=== PATIENT | male | born 1950 | race Caucasian/White ===

== ENCOUNTER 2016-10-03 11:37 | Day surgery (SDC) | payer OTHER ==
[~2016-10-03] VITALS: Ht 185.4 cm; Wt 86.2 kg
[~2016-10-03 11:37] MED LIST: ALPR.25 PO; ASPI81TA45 PO; DIGO0.25 PO; DOCU1CAP39 PO; LACT20SO4 PO; LANS30 PO; LEVO50TA4 PO; METO25 PO; PACE200T4 PO; PRAV10 PO; RIFA550 PO; THIA100T PO; TRAM50TA PO
[2016-10-03] MEDS ORDERED: NS 1000P @30 MLS/HR (KVO) IV SCH (12:30)
[2016-10-03 12:39] VITALS: BP 157/88; PULSE 84; RESP 17; TEMP 98.2; O2SAT 99
[2016-10-03 12:49] LABS: BASOPHIL # 0.1 TH/MM3 (0-0.2); BASOPHIL % 1.2 % (0.0-2.0); EOSINOPHIL # 0.2 TH/MM3 (0-0.4); EOSINOPHIL % 4.2 % (0.0-4.0); HEMATOCRIT 41.8 % (39.0-51.0); HEMO FLAGS DIFF FINAL; LYMPH % 26.2 % (9.0-44.0); LYMPHOCYTE # 1.5 TH/MM3 (1.0-4.8); MEAN CELL VOLUME 99.6 FL (80.0-100.0); MEAN CORPUSCULAR HEMOGLOBIN 34.4 PG (27.0-34.0); MEAN CORPUSCULAR HGB CONC 34.6 % (32.0-36.0); MONO % 14.2 % (0.0-8.0); NEUT % 54.2 % (16.0-70.0); PLATELET COUNT 149 TH/MM3 (150-450); RED CELL DISTRIBUTION WIDTH 13.4 % (11.6-17.2); WHITE BLOOD COUNT 5.5 TH/MM3 (4.0-11.0)
[2016-10-03 12:51] LABS: APTT (PATIENT) 30.7 SEC (24.3-30.1); INTERNATIONAL NORMALIZED RATIO 1.1 RATIO; PROTHROMBIN TIME - PATIENT 11.9 SEC (9.8-11.6)
[2016-10-03] MEDS ORDERED: ENAL1SOL2 PO (12:54)
[2016-10-03] MEDS ORDERED: VITA100036 PO (12:54)
[2016-10-03] MEDS ORDERED: METO50TA PO (12:54)
[2016-10-03] MEDS ORDERED: ATOR10TA15 PO (12:54)
[2016-10-03] MEDS ORDERED: ALPR0.25 PO (12:54)
[2016-10-03] MEDS ORDERED: VITATAB11 PO (12:54)
[2016-10-03] MEDS ORDERED: CLON0.1T PO (12:54)
[2016-10-03] MEDS ORDERED: FURO40TA PO (12:54)
[2016-10-03] MEDS ORDERED: LANS30CA PO (12:54)
[2016-10-03] MEDS ORDERED: FISH500C PO (12:54)
[2016-10-03] MEDS ORDERED: ASPI1TAB69 PO (12:54)
[2016-10-03] MEDS ORDERED: POTA10CA PO (12:54)
[2016-10-03] MEDS ORDERED: MULT1CHW70 PO (12:54)
[2016-10-03] MEDS ORDERED: LEVO50TA4 PO (12:54)
[2016-10-03 12:59] LABS: POTASSIUM 3.7 MEQ/L (3.5-5.1)
[2016-10-03] MEDS ORDERED: MIDAZOLAM HCL 2 MG/2 ML VIAL ONE (13:29)
[2016-10-03] MEDS ORDERED: HEPARIN-NS/PF INJ 500 ML ONE (13:29)
[2016-10-03] MEDS ORDERED: SODIUM CHLOR 0.9% 250 ML INJ 250 ML IV PRN (14:15)
[2016-10-03] MEDS ORDERED: ONDANSETRON HCL 4 MG/2 ML VIAL IV PRN (14:15)
[2016-10-03] MEDS ORDERED: ATROPINE SULFATE 1 MG/ML VIAL IVP PRN (14:15)
[2016-10-03] MEDS ORDERED: SODIUM CHLOR 0.9% 1000 ML INJ 1,000 ML IV ONE (15:00)
--- NOTE | 2016-10-03 17:02 | MA ---
cc: RAINE BOWDEN M.D. DATE: 10/03/2016 PROCEDURE Left heart catheterization, selective coronary angiography, left ventriculography. PROCEDURE NOTE The patient was brought to the cardiac catheterization laboratory in fasting state after having signed informed consent. The right groin was prepped and draped as per policy and anesthetized with 1% lidocaine. Arterial access was obtained via the right femoral artery and a 6-Croatian sheath placed. Coronary arteriography was performed using 6-Croatian Jabier left 4.0 and right progressive catheters. Left ventriculography was done using a standard 6-Croatian pigtail. The bypass grafts were engaged with the progressive right catheter. There were no apparent immediate complications. His arteriotomy site was closed with Vascade with the achievement of good hemostasis. HEMODYNAMIC RESULTS Left ventricle 133 with an end-diastolic pressure is 16. Aorta 129/55 with a mean 87. There was no significant transvalvular aortic gradient on pullback of the pigtail catheter. CORONARY ARTERIOGRAPHY The left main is moderately calcified. There is distal 80-85% stenosis. This lesion also involves the takeoff of the left circumflex. The left anterior descending is totally occluded at its origin. The left circumflex apart from the ostial lesion has diffuse disease in its proximal portion resulting in up to 40% stenosis. There is a tiny ramus intermedius which has severe ostial disease and severe mid disease. The right coronary artery has a long zone of total occlusion proximally. A few collaterals are seen on contrast injection of the vein graft to the obtuse marginal system going to the right coronary GRAFT ANGIOGRAPHY The vein graft to an obtuse marginal is widely patent. This graft reportedly had a sequential to another obtuse marginal, and the sequential portion is not seen. The left internal mammary artery to the LAD is widely patent. Scant collaterals are seen from the LAD to the right coronary. LEFT VENTRICULOGRAPHY Contrast injection of the left ventricle reveals global hypokinesis. Ejection fraction is approximately 35-40%. CONCLUSION 1. Severe three-vessel [place] coronary artery disease. 2. Patent left internal mammary artery to the LAD and patent vein graft to the obtuse marginal; a reported sequential portion of the graft to the obtuse marginal is not seen and presumed to be totally occluded. 3. Totally occluded unbypassed right coronary with few collaterals from the left coronary system. 4. Reduced left ventricular systolic function with ejection fraction roughly estimated at 35-40% due to global hypokinesis. MD BASIL Rutledge/manuela /2:12 PM /4:44 PM DIMA
--- NOTE | 2016-10-04 23:38 | EKG ---
Date Performed: 10/03/2016 Time Performed: 12:30:40 PTAGE: 66 years EKG: Sinus rhythm Left axis deviation IV conduction defect Anteroseptal ST elevation - possible early repolarization L ateral ST-T changes are nonspecific Abnormal ECG PREVIOUS TRACING : 07/15/2014 11.22 DOCTOR: Helen Means Interpretating Date/Time 10/04/2016 23:34:55
== END 2016-10-03 16:50 | disposition home or self-care (01) ==
LOC: HDOC 11:37 → HDIC 11:38 → HDOC 16:50
PROVIDERS: ATTEND Internal Medicine Cardiovascular Disease
DX: I25.10 Atherosclerotic heart disease of native coronary artery without angina pectoris (principal); I48.0 Paroxysmal atrial fibrillation; E78.5 Hyperlipidemia, unspecified; I42.9 Cardiomyopathy, unspecified; I50.9 Heart failure, unspecified; Z95.1 Presence of aortocoronary bypass graft
CPT/HCPCS: 80048; 85025; 85610; 85730; 93005; 93458; C1760; C1769; C1893; G0269; J1644; J2250; J3010

== ENCOUNTER 2017-11-24 07:30 | Day surgery (SDC) | payer OTHER ==
[~2017-11-24] VITALS: Ht 175.3 cm; Wt 95.5 kg
[~2017-11-24 07:30] MED LIST changes: -ALPR.25 PO; +ALPR0.25 PO; +ASPI1TAB69 PO; -ASPI81TA45 PO; +ATOR10TA15 PO; +CHOL10008 PO; +CLON0.1T PO; -DIGO0.25 PO; -DOCU1CAP39 PO; +ENAL1SOL2 PO; +FISH500C PO; +FURO40TA PO; -LACT20SO4 PO; -LANS30 PO; +LANS30CA PO; -METO25 PO; +METO50TA PO; +MULT1CHW70 PO; -PACE200T4 PO; +POTA10CA PO; -PRAV10 PO; -RIFA550 PO; -THIA100T PO; -TRAM50TA PO; +VITATAB11 PO
[2017-11-24] MEDS ORDERED: IOHEXOL 350 MG/ML 50 ML BTL (for Cath Lab) OTHER ONE (07:31)
[2017-11-24] MEDS ORDERED: NS 1000P @30 MLS/HR (KVO) IV SCH (08:00)
[2017-11-24 08:12] VITALS: BP 172/102; PULSE 83; RESP 18; TEMP 97.9; O2SAT 100
[2017-11-24] MEDS ORDERED: ECASA81 PO (08:22)
[2017-11-24] MEDS ORDERED: NAPR-855 PO (08:22)
[2017-11-24] MEDS ORDERED: MULTTAB67 PO (08:22)
[2017-11-24 08:35] LABS: AUTOMATED NEUTROPHIL # 2.5 TH/MM3 (1.8-7.7); BASOPHIL # 0.1 TH/MM3 (0-0.2); BASOPHIL % 1.1 % (0.0-2.0); EOSINOPHIL # 0.2 TH/MM3 (0-0.4); EOSINOPHIL % 4.5 % (0.0-4.0); HEMATOCRIT 41.3 % (39.0-51.0); HEMOGLOBIN 14.4 GM/DL (13.0-17.0); LYMPH % 26.7 % (9.0-44.0); LYMPHOCYTE # 1.3 TH/MM3 (1.0-4.8); MEAN CELL VOLUME 99.6 FL (80.0-100.0); MEAN CORPUSCULAR HEMOGLOBIN 34.7 PG (27.0-34.0); MEAN CORPUSCULAR HGB CONC 34.8 % (32.0-36.0); MEAN PLATELET VOLUME 9.6 FL (7.0-11.0); MONO % 15.9 % (0.0-8.0); MONOCYTE # 0.8 TH/MM3 (0-0.9); NEUT % 51.8 % (16.0-70.0); PLATELET COUNT 168 TH/MM3 (150-450); RED BLOOD COUNT 4.15 MIL/MM3 (4.50-5.90); RED CELL DISTRIBUTION WIDTH 12.9 % (11.6-17.2); WHITE BLOOD COUNT 4.9 TH/MM3 (4.0-11.0)
[2017-11-24 08:45] LABS: INTERNATIONAL NORMALIZED RATIO 1.1 RATIO; PROTHROMBIN TIME - PATIENT 11.4 SEC (9.8-11.6)
[2017-11-24 08:49] LABS: BICARBONATE 27.6 MEQ/L (21.0-32.0); CALCIUM 8.6 MG/DL (8.5-10.1); CREATININE 1.17 MG/DL (0.60-1.30)
[2017-11-24] MEDS ORDERED: HEPARIN-NS/PF FLUSH BAG 2,000 ML IV FLUSH ONE (09:44)
[2017-11-24] MEDS ORDERED: NITROGLYCERIN INJ 5 ML ONE (09:44)
[2017-11-24] MEDS ORDERED: VERAPAMIL HCL 5 MG/2 ML VIAL ONE (09:44)
[2017-11-24] MEDS ORDERED: MIDAZOLAM HCL 2 MG/2 ML VIAL ONE (09:44)
[2017-11-24] MEDS ORDERED: LIDOCAINE HCL 1% PF 30 ML VIAL ONE (09:52)
[2017-11-24] MEDS ORDERED: SODIUM CHLOR 0.9% 250 ML INJ 250 ML IV PRN (10:30)
[2017-11-24] MEDS ORDERED: ONDANSETRON HCL 4 MG/2 ML VIAL IV PUSH PRN (10:30)
[2017-11-24] MEDS ORDERED: SODIUM CHLOR 0.9% 1000 ML INJ 1,000 ML IV ONE (10:30)
[2017-11-24] MEDS ORDERED: ATROPINE SULFATE 1 MG/ML VIAL IVP PRN (10:30)
[2017-11-24] MEDS ORDERED: ISOS60TA PO (10:33)
--- NOTE | 2017-11-24 10:33 | CATHPROC ---
VOSS HIS Report Study Information Study Number Admission Scheduled Start Study Start [id number] Nov 24 2017 7:30AM 11/24/2017 Nov 24 2017 9:23AM [place] [facility] Cardiac Catheterization Admit Source Facility Department Other [facility] - [facility] Construction Worker Physician and Clinical Staff Initial Suresh Miguel Insole Doubler Dru Reese RN Insole Doubler Hubert DOUGHERTY, Paul Recorder Tali Dumont ,RT(R) Scrub Diamond Mckenzie,RT(R) Procedures Performed Procedure Location (Site) Vessel Name Angiogram LV LV Ventricle Coronary Angiograms LCA Left Coronary Coronary Angiograms RCA Right Coronary Coronary Angiograms FLORES FLORES L Heart Cath Equipment Time Seo Engineer Description Size Mfg Part Number Used/Scraped TRANSDUCER, TRLAURENT [id number] 09:53 GALARZA DOSS * Used W/STOCKCOCK *[id number] 10:19 SCHEDit MEDICAL VASCADE, FR6 CLOSURE SYSTEM FR 6\\7 Used *[id number] [id number] *[id number] 534-620T *[id number] 534-650S *[id number] 534-650S *[id number] 09:53 [employer]House INDUSTRIES PACK, CCL CUSTOM * Used *[id number] 09:53 [employer]House PACER PEN, SKIN DUAL W/ RULER * Used *[id number] 09:53 ConsortiEX SHEATH, FR6.5 PRELUDE 11CM FR 6.5 038ACT Used *[id number] 09:53 ConsortiEX WIRE, 3MMJ .035 180CM 180CM Used *[id number] 09:53 NAMIC MANIFOLD, 4 PORT * Used *[id number] 10:20 NAMIC TUBING, HIGH PRESSURE 20" 20" Used *[id number] 09:53 NYCOMED OMNIPAQUE, 350 MG, 150ML 150ML [id number] Used [id number] 09:53 LV Sensors MEDICAL BLANKET,WARM AIR CCL * Used *[id number] History: Current Medications Medication Dosage/Unit Route Frequency Last Date/Time Taken Beta Vitor ASA Statins (any) NAPROXEN History: Risk Factors Family History of Hypertension Dyslipidemia Previous MT Previous Heart Failure Premature CAD Yes Yes Yes Yes Yes Prior Valve Prior PCI Prior CABG Prior CABGDate Surgery No No Yes 07/11/2014 Cerebrovascular Peripheral Artery Chronic Lung On Dialysis Diabetes Disease Disease Disease No Yes No No No History: Stress Tests Stress or Imaging Studies Performed No History: Other Current Smoker Method Quit Years Used No Cigars 10 Years Ago 50 Labs Hgb (g/dl) Hct (%) WBC (l/cumm) Platelets (thousands) 11.60-17.00 35.00-51.00 4.00-11.00 150.00-450.00 14.4 41.3 4.9 168 Glucose (mg/dl) BUN (mg/dl) Creatinine (mg/dl) BUN:Creatinine (1:x) 74.00-106.00 7.00-18.00 0.50-1.30 10.00-20.00 110 21 1.2 17.5 Na (meq/l) K (meq/l) 136.00-145.00 3.50-5.10 141 3.6 INR (PTT:PT) 0.90-1.10 1.1 CPK-MB (ng/ML) 0.50-3.60 Not Drawn Medication Medication Total Dose (Bolus/Oral) Medication Total Dosage/Unit 1% XYLOCAINE 15 mL FENTANYL 50 mcg VERSED 2 mg Medications (Bolus/Oral) Medication Time Given Dosage/Unit Administered By Reason 1% XYLOCAINE 11/24/2017 10:09:01 AM 15 mL Suresh Baxter 15 mL 1% XYLOCAINE given in lab by Suresh Baxter in Right Groin via Subcutaneous. Ordered by Silver Baxter. VERSED 11/24/2017 10:09:39 AM 2 mg Hugh, Dru 2 mg VERSED given in lab by Dru Reese RN in Left Antecubital via Peripheral IV. Ordered by Suresh Baxter. FENTANYL 11/24/2017 10:11:40 AM 50 mcg Hugh, Dru 50 mcg FENTANYL given in lab by Dru Reese RN in Left Antecubital via Peripheral IV. Ordered by Suresh Granados. Medication (Drip) Medication Time Given Dosage/Unit Concentration/Unit Diluent (ml) Solutio n IV Solutions 11/24/2017 9:48:30 AM 50 mL (IV) NaCl .9 Patient arrived on IV Solutions in Left Antecubital via Peripheral IV. Pump/Drip Flow using NaCl .9. Initial Case Assessment Cardiovascular HR Rhythm NIBP Chest Pain 71 sr 165/93 2 Edema Present Skin color Skin None Normal Warm Dry Circulatory - Right Pulses Dorsalis Pedis Femoral 2 2 Scale (0,1,2,3,4,d) Circulatory - Left Pulses Dorsalis Pedis Femoral 2 2 Scale (0,1,2,3,4,d) Circulatory - Lower Extremities Color Lower Right Color Lower Left Normal Normal Neurological State Oriented to time-place- Alert Moves all extremities person Respiration - General Respiration Rate SpO2 (%) (B/min) 10 100 Final Case Assessment Cardiovascular HR Rhythm NIBP Chest Pain 71 sr 165/93 2 Edema Present Skin color Skin None Normal Warm Dry Circulatory - Right Pulses Dorsalis Pedis Femoral 2 2 Scale (0,1,2,3,4,d) Circulatory - Left Pulses Dorsalis Pedis Femoral 2 2 Scale (0,1,2,3,4,d) Circulatory - Lower Extremities Color Lower Right Color Lower Left Normal Normal Neurological State Oriented to time-place- Alert Moves all extremities person Respiration - General Respiration Rate SpO2 (%) (B/min) 10 100 Chronological Log Time Study Chronological Log 9:42:08 Patient arrived via Bed. 9:42:09 Patient Name, D.O.B, / Armband Verified By R.N. 9:48:17 Consent signed by the physician and the patient and verified by the Nuclear Plant Construction Worker staff. 9:48:17 Pre-op and post- op instructions given; patient acknowledges understanding of instructions. 9:48:18 Verbal Stimulation=2 Physical Stimulation=2 Airway=2 Respiration=2 TOTAL=8. (0=absent, 1=li mited, 2=present) 9:48:22 Patient has been NPO for More than 6Hrs. 9:48:24 Skin Breakdown- none per patient 9:48:26 Patient Warmer Placed on the Table. 9:48:28 Uyen Prominences Protected 9:48:30 A # 20 IV was noted in the Antecubital (left). Grade = 0 9:48:30 Patient arrived on IV Solutions in Left Antecubital via Peripheral IV. Pump/Drip Flow using NaCl .9. 9:48:31 History and physical on the chart or being dictated. Assessment: Initial Case, HR=71 BPM, Rhythm=sr, JCJO=770/93 mmhg, Chest Pain=2, Edema=None, Col or=Normal, Skin = Warm, Dry Right Pulses: Monty Ped=2, Femoral=2 Left Pulses: Monty Ped=2, Femoral=2 9:48:32 Lower Right Extremities: Color=Normal Lower Left Extremities: Color=Normal Neurological: State=Alert, Ox3, MILES Respiration: Resp=10 B/min, NmA8=883 % Vitals capture started with the following parameters, Patient=Adult, Interval=5 min, Initial Pr znqgis=521 mmHg, 9:49:08 Deflation Rate=5 mmHg, Cuff placed on Unknown 9:50:26 HR=85 bpm, NYEB=944/93 mmhg, WyF1=379.0 %, Resp=13 B/min, Pain=2, Jeff=10, Koch=2 9:54:37 Bilateral groins prepped with 2% chlorhexidine, and draped after a 3 minute waiting time. 9:54:52 HR=84 bpm, RZPY=171/94 mmhg, SpO2=97.0 %, Resp=12 B/min, Pain=2, Jeff=10, Koch=2 9:59:00 MD paged 9:59:07 Pressure channel 1 zeroed. 9:59:20 MD responded 9:59:51 HR=82 bpm, LMRW=521/86 mmhg, SpO2=96.0 %, Resp=12 B/min, Pain=2, Jeff=10, Koch=2 10:00:00 MD arrived. 10:04:48 HR=69 bpm, GPUZ=925/78 mmhg, SpO2=96.0 %, Resp=9 B/min, Pain=2, Jeff=10, Koch=2 10:06:33 Reference ECG taken Time Out. Correct patient, correct procedure, correct physician, power injector not loaded with contrast with surgical 10:08:05 team present. Time Out Concurred by MD and individual staff in procedure. 10:08:29 Case Start 10:09:01 15 mL 1% XYLOCAINE given in lab by Suresh Baxter in Right Groin via Subcutaneous. Ordered by Suresh Baxter. 10:09:39 2 mg VERSED given in lab by Dru Reese, RN in Left Antecubital via Peripheral IV. Ordered by Suresh Baxter. 10:09:45 HR=80 bpm, YJPJ=920/94 mmhg, SpO2=95.0 %, Resp=11 B/min, Pain=2, Jeff=10, Koch=2 10:10:18 Access site was Right Femoral Artery. 10:10:26 A SHEATH, FR6.5 PRELUDE 11CM FR 6.5 was advanced into the Fem Art (right) using the Percuta neous technique. A JL 4.0 INFINITI CATHETER FR 6 was advanced over a wire. OMNIPAQUE, 350 MG, 150ML 150ML was us ed for 10:10:59 injections. 10:11:31 The LCA was injected and visualized at various angles. OMNIPAQUE, 350 MG, 150ML 150ML used . Recorded Pressure: Ao, HR=83, Condition=Condition 1 10:11:39 (Aorta) Ao 152/79/111 10:11:40 50 mcg FENTANYL given in lab by Dru Reese RN in Left Antecubital via Peripheral IV. Ord ered by Suresh Baxter. 10:11:47 Catheter was removed A 3DRC INFINITI CATHETER FR 6 was advanced over a wire. OMNIPAQUE, 350 MG, 150ML 150ML was used for 10:12:21 injections. 10:12:42 The RCA was injected and visualized at various angles. OMNIPAQUE, 350 MG, 150ML 150ML used . 10:14:08 The FLORES was injected and visualized at various angles. OMNIPAQUE, 350 MG, 150ML 150ML used . 10:14:33 Catheter was removed 10:14:52 HR=73 bpm, QTVD=017/66 mmhg, SpO2=95.0 %, Resp=13 B/min, Pain=2, Jeff=10, Koch=2 A PIGTAIL STR INFINITI CATHETER FR 6 was advanced over a wire. OMNIPAQUE, 350 MG, 150ML 150ML w as used for 10:15:16 injections. Recorded Pressure: LV, HR=78, Condition=Condition 1 10:16:03 (Left Ventricle) LV 139/10/31 10:17:43 The LV was injected at 12 cc/sec for a total of 42. OMNIPAQUE, 350 MG, 150ML 150ML used. Recorded Pressure: LV, Ao, HR=78, Condition=Condition 1 10:18:01 (Left Ventricle) LV 127/7/22, (Aorta) Ao 135/57/88 10:18:37 Catheter was removed 10:19:01 Case End 10:19:27 VASCADE, FR6 CLOSURE SYSTEM FR 6\\7 placement in the Fem Art (right) 10:19:45 HR=74 bpm, NUMO=386/73 mmhg, SpO2=89.0 %, Resp=11 B/min Assessment: Final Case, HR=71 BPM, Rhythm=sr, CWCU=575/93 mmhg, Chest Pain=2, Edema=None, [place] r=Normal, Skin = Warm, Dry Right Pulses: Monty Ped=2, Femoral=2 Left Pulses: Monty Ped=2, Femoral=2 10:19:55 Lower Right Extremities: Color=Normal Lower Left Extremities: Color=Normal Neurological: State=Alert, Ox3, MILES Respiration: Resp=10 B/min, JpQ3=212 % 10:20:11 Catheter(s) removed without difficulty 10:20:15 Sterile dressing applied to site 10:20:15 No case complications noted. 10:20:19 Cine recording checked. 10:20:26 Bedside Report will be given. 10:20:57 A Left Heart Cath was performed. 10:24:46 HR=73 bpm, HCME=096/73 mmhg, SpO2=92.0 %, Resp=12 B/min, Pain=2, Jeff=10, Koch=2 10:29:47 EEHA=964/73 mmhg, Pain=2, Jeff=10, Koch=2 10:29:55 Vitals capture stopped. 10:33:57 Patient moved to [facility] End Study - Contrast Media Used In Study Contrast Total Opened (mL) Total Used (mL) Total Wasted (mL) Omnipaque 35 35 0 End Study - Maximum Contrast Load Max Contrast Load (mL) 397.9 End Study - Radiation Exposure Fluoro Time (minutes) 1.7 End Study - Sheaths Sheaths Pulled By Sheath Hold Time (min) Diamond Mckenzie End Study - Patient Disposition Complications Transferred To Interventional Outcome No Telemetry Bed No attempt made
--- NOTE | 2017-11-24 10:40 | MA ---
cc: Suresh Baxter MD DATE: 11/24/2017 PROCEDURE: Left heart catheterization, selective coronary and graft angiography, left ventriculography. PROCEDURE NOTES: The patient was brought to the cardiac catheterization laboratory in a fasting state after having signed informed consent. The right groin was prepped and draped as per policy and anesthetized with 1% lidocaine. Arterial access was obtained via the right femoral artery and a 6-Mosotho sheath placed. Coronary arteriography was performed using 6-[place]osotho Jabier left 4.0 and right progressive catheters. The bypass grafts were engaged with the progressive right catheter. Left ventriculography was done using a standard 6-Mosotho pigtail. There were no apparent, immediate complications. His arteriotomy site was closed with VASCADE. HEMODYNAMIC DATA: Left ventricle 127 with an end diastolic pressure of 15, aorta 135/57 with a mean of 88. There was no significant transvalvular aortic gradient on pullback of the pigtail catheter. CORONARY ARTERIOGRAPHY: The left main is basically totally occluded distally. The left anterior descending is totally occluded at its origin. The left circumflex is totally occluded proximally. The right coronary artery is totally occluded proximally. There are few bridging collaterals as well as fair left to right collaterals supplying the distal vessel. GRAFT ANGIOGRAPHY: The vein graft to the obtuse marginal is widely patent. The [place] obtuse marginal distal to the anastomosis site is free of disease. Collaterals from the obtuse marginal to the distal right coronary are evident. The left internal mammary artery to the LAD is widely patent. There was retrograde filling into a medium sized diagonal which has overall mild proximal disease. The mid to distal [place] LAD has minimal luminal irregularities. LEFT VENTRICULOGRAPHY: Contrast injection of the left ventricle reveals mild global hypokinesis. Ejection fraction is estimated at 40-45%. CONCLUSIONS: 1. Severe 3-vessel [place] coronary artery disease. 2. Right dominant system. 3. Patent left internal mammary artery to the left anterior descending and patent vein graft to the obtuse marginal. 4. Fair left to right collaterals. 5. Mildly reduced left ventricular systolic function with ejection fraction estimated at 40-45%. Suresh Baxter MD GHR/DL , 10:26 AM , 10:38 AM DIMA
--- NOTE | 2017-11-25 00:02 | EKG ---
Date Performed: 11/24/2017 Time Performed: 08:17:14 PTAGE: 67 years EKG: Sinus rhythm . 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
== END 2017-11-24 13:40 | disposition home or self-care (01) ==
LOC: HDOC 07:30 → HDIC 07:32 → HDOC 13:40
PROVIDERS: ATTEND Internal Medicine Cardiovascular Disease
DX: I25.10 Atherosclerotic heart disease of native coronary artery without angina pectoris (principal); E03.9 Hypothyroidism, unspecified; I48.0 Paroxysmal atrial fibrillation; I50.9 Heart failure, unspecified; E78.5 Hyperlipidemia, unspecified; Z01.818 Encounter for other preprocedural examination; Z95.1 Presence of aortocoronary bypass graft
CPT/HCPCS: 80048; 85025; 85610; 85730; 93005; 93458; 99152; 99153; C1760; C1769; C1893; G0269; J1644; J2250; J3010; Q9967